=== PATIENT | female | born 1950 | race Caucasian/White ===

== ENCOUNTER 2018-06-29 11:20 | Emergency (ER) | payer MEDICARE ==
[2018-06-29 12:09] VITALS: BP 142/84
--- NOTE | 2018-06-29 12:15 | UC ---
Abdominal Pain Female HPI - HPI Summary HPI Summary: 67 yo female presents with abdominal discomfort. She tells me that around 06/10 she noticed her stools were looser than usual and were more pale/yellow in color. Since that time she has had abdominal discomfort, mostly in the epigastric area and RUQ. She feels nauseous, but knows she must eat - but when she does eat this will trigger diffuse cramps and a loose BM. Over the last 2 weeks she feels her abdomen is larger than usual and her son has told her that her eyes are yellow in color. She has a hx of HTN for which she takes antihypertensives. She has been smoking 1/2 to 2 packs a day for 50 years. Admits to 2-3 glasses of wine daily, but says she has not had a drink since these symptoms began. Denies fever, chills, itching, cough, SOB, chest pain. - History of Current Complaint Chief Complaint: UCAbdominalPain Stated Complaint: ABD PAIN Time Seen by Provider: 06/29/18 12:14 Hx Obtained From: Patient Onset/Duration: Gradual Onset Severity Initially: Mild Severity Currently: Mild Pain Intensity: 1 Pain Scale Used: 0-10 Numeric Allergies/Adverse Reactions: Allergies Allergy/AdvReac Type Severity Reaction Status Date / Time clarithromycin [From Biaxin] Allergy Dizziness Verified 06/29/18 15:55 lisinopril Allergy Swelling Verified 06/29/18 15:55 Of Face,Lips,& Throat Home Medications: Home Medications Aspirin 81 mg CHEW TAB* [Aspirin Low Dose TAB*] 81 mg PO DAILY 06/29/18 [ History Confirmed 06/29/18] Hydrochlorothiazide TAB* [Hydrodiuril TAB*] 25 mg PO DAILY 06/29/18 [History Confirmed 06/29/18] Spironolactone TAB* [Aldactone TAB*] 25 mg PO DAILY 06/29/18 [History Confirmed 06/29/18] amLODIPine TAB* [Norvasc 5 mg TAB*] 5 mg PO DAILY 06/29/18 [History Confirmed ] PMH/Surg Hx/FS Hx/Imm Hx Cardiovascular History: Hypertension - Surgical History Surgical History: Yes Surgery Procedure, Year, and Place: 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 - Family History Known Family History: Positive: None - Social History Occupation: Retired Lives: With Family Alcohol Use: Daily Alcohol Amount: 2-3 glasses before 06/11 Substance Use Type: None Smoking Status (MU): Heavy Every Day Tobacco Smoker Type: Cigarettes Amount Used/How Often: 3/4 PPD Household Exposure Type: Cigarettes Review of Systems Constitutional: Negative Skin: Negative Eyes: Negative ENT: Negative Respiratory: Negative Cardiovascular: Negative Gastrointestinal: Abdominal Pain, Diarrhea Neurovascular: Negative Musculoskeletal: Negative Neurological: Negative Psychological: Negative All Other Systems Reviewed And Are Negative: Yes Physical Exam - Summary Physical Exam Summary: GENERAL: NAD. WDWN. No pain distress. SKIN: No rashes, sores, lesions, or open wounds. HEENT: Head: AT/NC Eyes: EOM intact. PERRLA. Sclera with moderate yellowing. Conjunctiva pale. Throat: Posterior oropharynx without exudates, erythema, or tonsillar enlargement. Uvula midline. NECK: Supple. Nontender. No lymphadenopathy. CHEST: CTAB. No r/r/w. No accessory muscle use. Breathing comfortably and in no distress. CV: RRR. Without m/r/g. Pulses intact. Cap refill <2seconds ABDOMEN: Mild TTP RUQ and epigastric region. Moderate distention. Soft. No CVA tenderness. Bowel sounds present NEURO: Alert. PSYCH: Age appropriate behavior. Triage Information Reviewed: Yes Vital Signs: Initial Vital Signs Temp 97.9 F 06/29/18 12:00 Pulse 90 06/29/18 12:00 Resp 18 06/29/18 12:00 BP 142/84 06/29/18 12:00 Pulse Ox 99 06/29/18 12:00 Vital Signs Reviewed: Yes Abd Pain Female Course/Dx - Course Course Of Treatment: Discussed with the pt that her symptoms are concerning for an issue with her biliary system and this requires a further work-up in the ED. Pt was agreeable to this, but declined ambulance. - Differential Dx/Diagnosis Provider Diagnoses: Jaundice. Abdominal distention. Epigastric abdominal pain Discharge - Sign-Out/Discharge Documenting (check all that apply): Patient Departure All imaging exams completed and their final reports reviewed: No Studies - Discharge Plan Condition: Stable Disposition: HOME-RECOMMEND TO ED Referrals: Rama Willingham MD [Primary Care Provider] - Additional Instructions: Please go to the ER for further evaluation of your yellowing skin, abdominal bloating, and nausea - Billing Disposition and Condition Condition: STABLE Disposition: Home-Recommend to ED
== END 2018-06-29 12:30 | disposition home health service (06) ==
LOC: UCEAST 11:20
DX: R14.0 Abdominal distension (gaseous) (principal); R88.8 Abnormal findings in other body fluids and substances; R10.13 Epigastric pain; I10 Essential (primary) hypertension; F17.210 Nicotine dependence, cigarettes, uncomplicated; Z88.1 Allergy status to other antibiotic agents; R17 Unspecified jaundice
CPT/HCPCS: 99211; G0463

== ENCOUNTER 2018-06-29 13:00 | Emergency (ER) | payer MEDICARE ==
[2018-06-29 16:17] LABS: Hematocrit 41 % (35-47); Hemoglobin 14.7 g/dl (12.0-16.0); Mean Corpuscular HGB Conc 36 g/dl (31-36); Mean Corpuscular Hemoglobin 35 pg (27-31); Mean Corpuscular Volume 97 fL (80-97); Mean Platelet Volume 9.8 um3 (7.4-10.4); Platelet Count 242 10^3/ul (150-450); Red Blood Count 4.25 10^6/ul (4.00-5.40); Red Cell Distribution Width 13 % (10.5-15); White Blood Count 7.1 10^3/ul (3.5-10.8)
[2018-06-29 16:25] LABS: INR 1.07 (0.77-1.02)
--- NOTE | 2018-06-29 16:28 | ED ---
Abdominal Pain/Female - HPI Summary HPI Summary: This patient is a 67 year old F presenting to [facility] with a chief complaint of diffuse abd pain since 3 weeks ago. She states the pain is generally diffuse, with cramps in the lower quadrants, and occasional discrete right sided pain. Pt is unsure about weight loss, but endorses decreased appetite, as well as abd bloating, yellow eyes and skin, diarrhea/soft stool, darker than normal urine, and nausea. She denies CP and SOB. Pt denies PMHx involving her liver, cholecyst , and pancreas, and DM. PMHx HTN HLD. Pt states she quit drinking 3 weeks ago; she used to have 2 or 3 glasses of wine before bed, but stopped because she couldnt stand the smell of it anymore. Pt endorses smoking 2/3 a pack a day. SHx Lymph nodes removed from neck and tongue abscess removal. - History of Current Complaint Chief Complaint: EDGeneral Stated Complaint: ABD BLOATING/NAUSEA Time Seen by Provider: 06/29/18 15:22 Hx Obtained From: Patient Onset/Duration: Gradual Onset, Lasting Weeks, Still Present Timing: Constant Severity Initially: Mild Severity Currently: Mild Pain Scale Used: 0-10 Numeric Location: Diffuse Radiates: No Character: Cramping Aggravating Factor(s): Nothing Alleviating Factor(s): Nothing Associated Signs and Symptoms: Positive: Decreased Appetite, Nausea, Diarrhea, Other: - Jaundiced skin and eyes. Negative: Fever, Chest Pain Allergies/Adverse Reactions: Allergies Allergy/AdvReac Type Severity Reaction Status Date / Time clarithromycin [From Biaxin] Allergy Dizziness Verified 06/30/18 09:35 lisinopril Allergy Swelling Verified 06/30/18 09:35 Of Face,Lips,& Throat PMH/Surg Hx/FS Hx/Imm Hx Endocrine/Hematology History: Denies: Hx Diabetes, Hx Thyroid Disease Cardiovascular History: Reports: Hx Hypercholesterolemia, Hx Hypertension Denies: Hx Congestive Heart Failure Respiratory History: Denies: Hx Asthma, Hx Chronic Obstructive Pulmonary Disease (COPD) GI History: Denies: Hx Ulcer History: Denies: Hx Renal Disease Sensory History: Denies: Hx Legally Blind, Hx Deafness Opthamlomology History: Denies: Hx Legally Blind EENT History: Denies: Hx Deafness Psychiatric History: Denies: Hx Autism, Hx Schizophrenia - Cancer History Cancer Type, 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, hx of skin ca - Surgical History Surgery Procedure, Year, and Place: 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 - Immunization History Immunizations Up to Date: Yes Infectious Disease History: No Infectious Disease History: Denies: Hx Hepatitis, Hx Human Immunodeficiency Virus (HIV), Traveled Outside the [place] in Last 30 Days - Family History Known Family History: Positive: Cardiac Disease, Other - CA, aneurysm - Social History Occupation: Retired Lives: Alone Alcohol Use: Daily Alcohol Amount: 2-3 glasses before 06/11 Substance Use Type: Reports: None Smoking Status (MU): Heavy Every Day Tobacco Smoker Type: Cigarettes Amount Used/How Often: 3/ PPD Review of Systems Negative: Fever Positive: Other - jaundiced Negative: Chest Pain Negative: Shortness Of Breath Positive: Abdominal Pain, Diarrhea, Nausea, Other - abd bloating Positive: other - darker than nl coloration Positive: Other - jaundiced All Other Systems Reviewed And Are Negative: Yes Physical Exam Vital Signs On Initial Exam: Initial Vitals Temp Pulse Resp BP Pulse Ox 97.2 F 95 16 147/90 98 06/29/18 13:09 06/29/18 13:09 06/29/18 13:09 06/29/18 13:09 06/29/18 13:09 Diagnostics - Vital Signs Vital Signs Temp Pulse Resp BP Pulse Ox 06/29/18 13:09 97.2 F 95 16 147/90 98 - Laboratory Lab Results: Lab Results 06/29/18 Range/Units 16:04 WBC 7.1 (3.5-10.8) 10^3/ul RBC 4.25 (4.00-5.40) 10^6/ul Hgb 14.7 (12.0-16.0) g/dl Hct 41 (35-47) % MCV 97 (80-97) fL MCH 35 H (27-31) pg MCHC 36 (31-36) g/dl RDW 13 (10.5-15) % Plt Count 242 (150-450) 10^3/ul MPV 9.8 (7.4-10.4) um3 Neut % (Auto) Pending Lymph % (Auto) Pending [place] % (Auto) Pending Eos % (Auto) Pending Baso % (Auto) Pending Absolute Neuts (auto) Pending Absolute Lymphs (auto) Pending Absolute Monos (auto) Pending Absolute Eos (auto) Pending Absolute Basos (auto) Pending Absolute Nucleated RBC Pending Nucleated RBC % Pending Result Diagrams: 06/29/18 16:04 06/29/18 16:04 Lab Statement: Any lab studies that have been ordered have been reviewed, and results considered in the medical decision making process. - CT A/P CT Interpretation: Positive (See Comments) CT Interpretation Completed By: Radiologist - Intrahepatic duct dilatation, dilated gallbladder and approximately 2.9 x 2.7 cm mass in the inferior pancreatic head suspicious for pancreatic carcinoma. No definite adjacent adenopathy is noted however. Dr. Doran has reviewed this report. - EKG 1531 Cardiac Rate: NL - 96 EKG Rhythm: Sinus Rhythm EKG Interpretation: LAE, Q waves seen in the inferior leads. Re-Evaluation - Re-Evaluation First Eval Re-Evaluation Time: 17:56 Change: Unchanged Comment: Informed pt of imaging and lab results. Pt states she has to go home at the moment, will sign out AMA, but promises to return tonight or tomorrow. Abdominal Pain Fem Course/Dx - Course Course Of Treatment: A 67-year-old F presents to the ED with a CC of diffuse abd pain for 3 weeks. (+) abd bloating, transient right-sided abd pain, cramping lower abd pain, diarrhea, jaundiced skin and eyes, darker than baseline urine color, nausea, and decreased appetite. (-) CP, SOB. Pt claims she quit drinking 3 weeks ago (used to have 2 or 3 glasses of wine a night) because she "couldn't stand the smell of it anymore." PMHx DM, HLD, denies PMHx involving cholecyst, liver, and pancreas, and denies DM. Pt was referred here from her PCP for jaundice and abd distension. An EKG reveals NSR at 96 BPM with LAE and Q waves seen in the inferior leads. A CT A/P w/ reveals intrahepatic duct dilatation, dilated gallbladder and approximately 2.9 x 2.7 cm mass in the inferior pancreatic head suspicious for pancreatic carcinoma. No definite adjacent adenopathy is noted however. An EKG reveals NSR at 96 BPM with . In the ED course, pt was given contrast, KCl, and nl saline. Pt's lab results show a K+ of 2.6, low sodium and low chloride, high total, direct, and indirect bilirubin, high AST, high ALT, high alkaline phosphatase, high CRP, high amylase , and high lipase. Pt is awake, alert, and oriented, capable of making an informed decision, and was thus able to sign-out AMA. - Diagnoses Provider Diagnoses: Obstructive jaundice, Pancreatic mass, Hypokalemia Discharge - Sign-Out/Discharge Documenting (check all that apply): Patient Departure - AMA - Discharge Plan Condition: Stable Disposition: AGAINST MEDICAL ADVICE Patient Education Materials: Hypokalemia (ED), Pancreatic Cancer (DC), Jaundice (ED) Referrals: Rama Willingham MD [Primary Care Provider] - Additional Instructions: Return to the emergency department for any new or worsening symptoms. Please return to the emergency department as soon as possible for a follow up. Follow up with your primary care provider in 1-3 days. - Billing Disposition and Condition Condition: STABLE Disposition: Against Medical Advice - Attestation Statements Document Initiated by Meryl: Yes Documenting Scribe: Lit Foster Provider For Whom Meryl is Documenting (Include Credential): Dr. Esha Doran MD Scribe Attestation: Lit Ayala, scribed for Dr. Esha Doran MD on 07/02/18 at 0746. Scribe Documentation Reviewed: Yes Provider Attestation: The documentation as recorded by the Lit franz accurately reflects the service I personally performed and the decisions made by me, Dr. Esha Doran MD
[2018-06-29 16:30] LABS: Urine Appearance Clear; Urine Blood 1+ (Negative); Urine Color Amber; Urine Ketones Negative (Negative); Urine Protein 1+(30 mg/dL) (Negative); Urine Red Blood Cell 3+(>10/hpf) (Absent); Urine Urobilinogen Positive (Negative); Urine White Blood Cell 1+(6-10/hpf) (Absent)
[2018-06-29 16:40] LABS: EGFR Non-African American 75.5 (>60)
[2018-06-29 16:49] LABS: ABS Basophils 0.1 10^3/ul (0-0.2); ABS Eosinophils 0.1 10^3/ul (0-0.6); ABS Lymphocytes 1.6 10^3/ul (1.0-4.8); ABS Monocytes 0.4 10^3/ul (0-0.8); ABS Neutrophils 4.9 10^3/ul (1.5-7.7); ABS Nucleated RBC 0 10^3/ul; Eosinophil % 0.7 % (0-6); Lymphocyte % 22.6 % (25-47); Nucleated Red Blood Cells % 0
[2018-06-29] MEDS ORDERED: NS 0.9% 1000 ML* 1,000 ML IV ONE (17:04)
[2018-06-29] MEDS ORDERED: KCL 20 MEQ/100 ML IVPREMIX* 20 MEQ/100 ML BAG IV ONE (17:04)
[2018-06-29] MEDS ORDERED: Potassium Chlor TAB* 20 MEQ TAB.ER PO ONE (17:04)
[2018-06-29] MEDS ORDERED: Iohexol 300* (CONTRAST) 10 ML SDV IV ONE (17:07)
--- NOTE | 2018-06-29 17:46 | RAD ---
Indication: Abdominal pain and bloating. Contrast: Administered 85.1 ml of OMNIPAQUE 300 mg/ml CT of the abdomen and pelvis was performed after IV contrast administration. No oral contrast was given. Coronal and sagittal reconstructed images were obtained. The lung bases demonstrate no pleural fluid, nodules or masses. Heart is of normal size without evidence of pericardial effusion. The liver is normal in size. There is mild to moderate intrahepatic duct dilatation noted. The common duct is dilated. The gallbladder is also dilated. Pancreatic duct is also dilated. There is a mass in the pancreatic head which is nonenhancing measuring 2.9 x 2.7 cm. This is suspicious for pancreatic carcinoma. The spleen is normal in size. There is a right adrenal nodule measuring 10 mm. The left adrenal gland is unremarkable are noted. The kidneys demonstrate symmetric nephrograms. There is an atherosclerotic aorta is noted. Celiac axis and superior mesenteric artery demonstrates atherosclerosis. No retroperitoneal adenopathy is noted. Small bowel and colon demonstrates no abnormal dilatation. The urinary bladder is unremarkable. The uterus and ovaries demonstrates myomatous changes. No hernias are noted. The bony structures demonstrates multilevel degenerative disc disease. IMPRESSION: Intrahepatic duct dilatation, dilated gallbladder and approximately 2.9 x 2.7 cm mass in the inferior pancreatic head suspicious for pancreatic carcinoma. No definite adjacent adenopathy is noted however. Dr. Doran was notified of the results at 1742 hours.
[2018-06-29 20:19] VITALS: BP 174/84
== END 2018-06-29 20:20 | disposition left against medical advice (07) ==
LOC: ED 13:00
DX: K83.1 Obstruction of bile duct (principal); K86.9 Disease of pancreas, unspecified; E87.6 Hypokalemia
CPT/HCPCS: 36415; 74177; 80053; 81003; 81015; 82140; 82150; 82247; 82248; 83605; 83690; 83735; 83880; 84484; 85025; 85610; 85730; 86140; 87040; 87086; 93005; 96365; 99283; A9270-GY; J3480; Q9967

== ENCOUNTER 2018-06-30 09:29 | Inpatient (IN) | payer MEDICARE ==
--- NOTE | 2018-06-30 10:36 | ED ---
Abdominal Pain/Female - HPI Summary HPI Summary: This patient is a 67 year old F presenting to [facility] accompanied by her son with a chief complaint of 2/10 diffuse lower abd pain since 3 weeks ago. She endorses yellow stool and dark urine. Pt was in the ED yesterday, and a CT found a mass on her pancreas. Pt also had a low K+ level yesterday. Pt left AMA last night, but promised she would return today. - History of Current Complaint Chief Complaint: EDAbdPain Stated Complaint: ABD PAIN/PANCREATIC MASS Time Seen by Provider: 06/30/18 10:05 Hx Obtained From: Patient Onset/Duration: Gradual Onset, Lasting Weeks, Still Present Timing: Constant Severity Initially: Mild Severity Currently: Mild Pain Intensity: 1 Pain Scale Used: 0-10 Numeric Location: Diffuse Radiates: No Aggravating Factor(s): Nothing Alleviating Factor(s): Nothing Associated Signs and Symptoms: Positive: Urinary Symptoms - dark color, Diarrhea - yellow and soft. Negative: Fever Allergies/Adverse Reactions: Allergies Allergy/AdvReac Type Severity Reaction Status Date / Time clarithromycin [From Biaxin] Allergy Dizziness Verified 06/30/18 09:35 lisinopril Allergy Swelling Verified 06/30/18 09:35 Of Face,Lips,& Throat PMH/Surg Hx/FS Hx/Imm Hx Endocrine/Hematology History: Denies: Hx Diabetes, Hx Thyroid Disease Cardiovascular History: Reports: Hx Hypercholesterolemia, Hx Hypertension Denies: Hx Congestive Heart Failure Respiratory History: Denies: Hx Asthma, Hx Chronic Obstructive Pulmonary Disease (COPD) GI History: Denies: Hx Ulcer History: Denies: Hx Renal Disease Sensory History: Denies: Hx Legally Blind, Hx Deafness Opthamlomology History: Denies: Hx Legally Blind EENT History: Denies: Hx Deafness Psychiatric History: Denies: Hx Autism, Hx Schizophrenia - Cancer History Cancer Type, 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, hx of skin ca - Surgical History Surgery Procedure, Year, and Place: surgery tongue and lymph node removal - cancer 2010 Infectious Disease History: No Infectious Disease History: Denies: Hx Hepatitis, Hx Human Immunodeficiency Virus (HIV), Traveled Outside the [place] in Last 30 Days - Family History Known Family History: Positive: Cardiac Disease, Other - CA, aneurysm - Social History Occupation: Retired Lives: Alone Alcohol Use: Daily Alcohol Amount: 2-3 glasses before 06/11 Substance Use Type: Reports: None Smoking Status (MU): Heavy Every Day Tobacco Smoker Type: Cigarettes Amount Used/How Often: 3/4 PPD Review of Systems Negative: Fever Positive: Abdominal Pain, Diarrhea - yellow and soft Positive: other - dark coloration All Other Systems Reviewed And Are Negative: Yes Physical Exam - Summary Physical Exam Summary: VITAL SIGNS: Reviewed. GENERAL: Patient is a well-developed and nourished female who is lying comfortable in the stretcher. Patient is not in any acute respiratory distress. HEAD AND FACE: No signs of trauma. No ecchymosis, hematomas or skull depressions. No sinus tenderness. EYES: PERRLA, EOMI x 2, No injected conjunctiva, no nystagmus. Jaundiced EARS: Hearing grossly intact. Ear canals and tympanic membranes are within normal limits. MOUTH: Oropharynx within normal limits. NECK: Supple, trachea is midline, no adenopathy, no JVD, no carotid bruit, no c- spine tenderness, neck with full ROM. CHEST: Symmetric, no tenderness at palpation LUNGS: Clear to auscultation bilaterally. No wheezing or crackles. CVS: Regular rate and rhythm, S1 and S2 present, no murmurs or gallops appreciated. ABDOMEN: Soft, non-tender. No signs of distention. No rebound no guarding, and no masses palpated. Bowel sounds are normal. EXTREMITIES: FROM in all major joints, no edema, no cyanosis or clubbing. NEURO: Alert and oriented x 3. No acute neurological deficits. Speech is normal and follows commands. SKIN: Dry and warm, jaundiced Triage Information Reviewed: Yes Vital Signs On Initial Exam: Initial Vitals Temp Pulse Resp BP Pulse Ox 98.1 F 101 16 146/82 99 06/30/18 09:31 18 09:31 18 09:31 18 09:31 18 09:31 Vital Signs Reviewed: Yes Diagnostics - Vital Signs Vital Signs Temp Pulse Resp BP Pulse Ox 06/30/18 09:31 98.1 F 101 16 146/82 99 - Laboratory Result Diagrams: 07/01/18 05:36 07/01/18 05:36 Lab Statement: Any lab studies that have been ordered have been reviewed, and results considered in the medical decision making process. - EKG 1035 Cardiac Rate: NL - 82 EKG Rhythm: Sinus Rhythm ST Segment: Normal Ectopy: None EKG Interpretation: Q waves in III and AVF, no STEMI Abdominal Pain Fem Course/Dx - Course Course Of Treatment: This patient is a 67-year-old female who presents to the emergency department with chief complaint of having lower abdominal pain. The patient was seen in the emergency department yesterday and she was found to be jaundiced with the defect and bilirubin of 6.7 indirect is 4.1, AST 190, AST 348 , amylase 272 and lipase 1350. Abdominopelvic CT done yesterday show appetite mass. The patient signed AGAINST MEDICAL ADVICE and she will home because she needs to take care of some personal business. Today she comes back to be admitted and to have a full workup. She has no significant complaints except that she has lower abdominal tenderness only 1-2 out of 10 without radiation. Work without any significant abnormalities except for an lipase is 719, potassium is 3.1. This point I discussed my physical exam, findings and test results with Dr. Plaza from the hospital services were accepted the patient for admission. - Diagnoses Differential Diagnosis: Positive: Constipation, Gall Bladder Disease, Renal Colic, Urinary Tract Infection Provider Diagnoses: Jaundice, Pancreatitis, Pancreatic mass - Provider Notifications Discussed Care Of Patient With: Ari Plaza Time Discussed With Above Provider: 11:10 Instructed by Provider To: Other - accepts admission Discharge - Sign-Out/Discharge Documenting (check all that apply): Patient Departure - admit - Discharge Plan Condition: Fair Disposition: ADMITTED TO [facility] - Billing Disposition and Condition Condition: FAIR Disposition: Admitted to [facility] - Attestation Statements Document Initiated by Meryl: Yes Documenting Scribe: Lit Foster Provider For Whom Meryl is Documenting (Include Credential): Dr. Deshawn Ortiz MD Scribe Attestation: Lit Ayala scribed for Dr. Deshawn Ortiz MD on 07/01/18 at 1515. Scribe Documentation Reviewed: Yes Provider Attestation: The documentation as recorded by the Lit franz accurately reflects the service I personally performed and the decisions made by me, Dr. Deshawn Ortiz MD
[2018-06-30] MEDS ORDERED: Potassium Chlor TAB* 20 MEQ TAB.ER PO ONE (14:31)
[2018-06-30] MEDS ORDERED: HYDROmorphone INJ1* 1 MG/ML SYRINGE IV PRN (14:31)
[2018-06-30 15:08] LABS: ABS Basophils 0.1 10^3/ul (0-0.2); ABS Eosinophils 0 10^3/ul (0-0.6); ABS Monocytes 0.3 10^3/ul (0-0.8); ABS Neutrophils 4.4 10^3/ul (1.5-7.7); ABS Nucleated RBC 0 10^3/ul; EGFR Non-African American 75.5 (>60); Eosinophil % 0.7 % (0-6); Hematocrit 40 % (35-47); Hemoglobin 14.1 g/dl (12.0-16.0); Lymphocyte % 17.1 % (25-47); Mean Corpuscular HGB Conc 35 g/dl (31-36); Mean Corpuscular Hemoglobin 34 pg (27-31); Mean Corpuscular Volume 97 fL (80-97); Mean Platelet Volume 9.8 um3 (7.4-10.4); Nucleated Red Blood Cells % 0.2; Platelet Count 227 10^3/ul (150-450); Red Blood Count 4.15 10^6/ul (4.00-5.40); Red Cell Distribution Width 13 % (10.5-15); White Blood Count 5.9 10^3/ul (3.5-10.8)
[2018-06-30 16:34] LABS: Urine Appearance Clear; Urine Blood 1+ (Negative); Urine Color Amber; Urine Ketones Trace (Negative); Urine Protein Negative (Negative); Urine Red Blood Cell Trace(0-2/hpf) (Absent); Urine Specific Gravity 1.017 (1.010-1.030); Urine Urobilinogen Negative (Negative); Urine White Blood Cell Trace(0-5/hpf) (Absent)
[2018-06-30] MEDS: NS 0.9% 1000 ML* 1,000 ML IV SCH (17:47)
--- NOTE | 2018-06-30 21:49 | HP ---
ADMISSION HISTORY AND PHYSICAL: DATE OF ADMISSION: 06/30/18 CHIEF COMPLAINT: Abdominal pain. HISTORY OF PRESENT ILLNESS/HOSPITAL COURSE: The patient is a 67-year-old lady with history of hypercholesterolemia and hypertension, who was in her usual state of health until 1 week prior to admission where she mentioned that her son noticed that her eyes appeared to be yellowish in color. This was also preceded with some intermittent abdominal pain, sometimes shooting, sometimes cramping in quality back on 06/12/18. She then presented yesterday in the emergency room where a CAT scan was ordered, which revealed intrahepatic duct dilatation with dilated gallbladder and proximally 2.9 x 2.7 cm mass in the inferior pancreatic head suspicious for pancreatic carcinoma with no definite adjacent adenopathy that was noted. In addition, she was also found to have mild pancreatitis with lipase in the 600 yesterday. She was then subsequently offered admission. Unfortunately, she declined to be admitted the day before since she mentioned that she had something to do at home. Persistence of her signs and symptoms led to her representation back to the ED today, still complaining of abdominal pain as well as jaundice. PAST MEDICAL AND SURGICAL HISTORY: Hypertension and hypercholesterolemia as well as history of tongue cancer, status post partial tongue and lymph node resection. History of alcohol abuse, mentioned that she has not had any alcohol intake since 1 month prior to this admission. ALLERGIES: NKDA. FAMILY HISTORY: Her father and brother have had history of heart disease. Her mother has had history of aneurysm. SOCIAL HISTORY: She currently smokes about 3 quarters of a pack per day that she has recently tried to decrease her smoking habit about a week or two ago, but mentions that she has had at least a [id number] history, usually smoking about 1 per day on average for the last 30 years. Alcohol abuse as described above. She lives alone. She is and has a 44-year-old child. REVIEW OF SYSTEMS: She mentions that she has not eaten a good meal in 4 days since Wednesday and mentions that when she has to go to the bathroom, her stools appeared yellowish and somewhat greasy. Complains of abdominal pain as described above. Denied any recent history of fevers, chills, nausea, vomiting, chest pain, shortness of breath, increased cough or sputum production, constipation, myalgias, arthralgias, throat pain, or new skin lesions other than her jaundice that has been noticed by her son about a week prior. PHYSICAL EXAMINATION GENERAL APPEARANCE: The patient is awake, alert, and oriented, not in acute distress. VITAL SIGNS: Blood pressure in 150s to 160 systolic. HEENT: Normocephalic, atraumatic. PERRLA. Extraocular muscles intact. Positive for icterus. Moist oral mucosa. Negative throat erythema. NECK: Soft, supple with no cervical lymphadenopathy. No JVD. CHEST: Clear to auscultation bilaterally. Good air entry. No wheezes, rales, or rhonchi. HEART: S1, S2 within normal limits. Regular rate and rhythm. No murmurs, rubs , or gallops. ABDOMEN: Soft. Slightly tender on the right upper quadrant to the epigastric area on deep palpation. Otherwise, nonsurgical abdomen. EXTREMITIES: No cyanosis, clubbing, or edema. SKIN: Warm to touch with positive for jaundice. DIAGNOSTIC STUDIES/LAB DATA: Most recent pertinent laboratories drawn today show sodium of 134 and chloride of 100, BUN and creatinine of 12 and 0.76. Total bili of 11.6, ALT of 296, AST of 151. Lipase of 719. EKG shows sinus rhythm, 82 beats per minute with no ST-segment changes. ASSESSMENT AND PLAN: The patient is a 67-year-old lady with history of hypertension, hypercholesterolemia, being admitted for abdominal pain and jaundice suspicious for pancreatic carcinoma. 1. Pancreatic mass suspicious for pancreatic carcinoma. We will check CA 19-9 and AFP. I have already spoken with Dr. Swann, who suggested that the patient can be best served by transferring the patient to tertiary facility where an ERCP and/or an EUS for subsequent staging could be done; however, unfortunately our system is currently down and we have just recently obtained her abdominal CT scan result to review and we will admit her at this time to treat her mild pancreatitis and either discharge her and/or for possible transfer to [facility] for expedited staging for likelihood pancreatic carcinoma. We will check CA 19-9 and AFP as discussed. 2. Mild pancreatitis. We will give the patient normal saline at 100 cc per hour and we will place the patient on p.r.n. Dilaudid with appropriate holding orders as described above. 3. Hypertension. We will hold off on HCTZ given mild pancreatitis. We will place the patient on clear liquid diet for now. 4. Hypokalemia. Corrected as ordered but we will continue to monitor. 5. DVT prophylaxis. We will place the patient on Lovenox subcu given the patient is high risk for deep vein thrombosis given likely pancreatic carcinoma. 6. Disposition. As above. [id number]/[facility] #: [id number]
[2018-07-01] MEDS: NS 0.9% 1000 ML* 1,000 ML IV SCH (02:49)
[2018-07-01 06:14] LABS: ABS Basophils 0.1 10^3/ul (0-0.2); ABS Eosinophils 0.1 10^3/ul (0-0.6); ABS Lymphocytes 1.1 10^3/ul (1.0-4.8); ABS Monocytes 0.3 10^3/ul (0-0.8); ABS Neutrophils 3.9 10^3/ul (1.5-7.7); ABS Nucleated RBC 0 10^3/ul; Eosinophil % 1.1 % (0-6); Hematocrit 38 % (35-47); Hemoglobin 13.2 g/dl (12.0-16.0); Lymphocyte % 19.9 % (25-47); Mean Corpuscular HGB Conc 35 g/dl (31-36); Mean Corpuscular Hemoglobin 34 pg (27-31); Mean Corpuscular Volume 98 fL (80-97); Mean Platelet Volume 10.4 um3 (7.4-10.4); Nucleated Red Blood Cells % 0; Platelet Count 200 10^3/ul (150-450); Red Blood Count 3.87 10^6/ul (4.00-5.40); Red Cell Distribution Width 14 % (10.5-15); White Blood Count 5.5 10^3/ul (3.5-10.8)
[2018-07-01 06:36] LABS: EGFR Non-African American 101.1 (>60)
[2018-07-01] MEDS ORDERED: Magnesium Sulfate IV* 3 GM in NS 0.9% 100 ML* 100 ML IVPB ONE (08:15)
[2018-07-01] MEDS ORDERED: Enoxaparin(*) 30 MG/0.3 ML SYR SUBCUT SCH (09:00)
[2018-07-01] MEDS ORDERED: amLODIPine TAB* 5 MG PO SCH (09:00)
[2018-07-01 10:44] LABS: INR 1.1 (0.77-1.02)
[2018-07-01 11:32] VITALS: BP 142/66
--- NOTE | 2018-07-01 15:02 | TRS ---
CC: Julien Frost; Julien Cox; Dr. Ortiz; Dr. Willingham DATE OF ADMISSION: 06/30/2018. DATE OF TRANSFER: 07/01/2018. DISCHARGE DIAGNOSES: 1. Pancreatic mass suspicious for pancreatic carcinoma, CA19-9, AFP tumor markers drawn, but pending. 2. Mild pancreatitis. 3. Biliary congestion with severe jaundice and icterus. 4. History of hypertension. HISTORY OF PRESENT ILLNESS/HOSPITAL COURSE: The patient is a 67-year-old, lady with a history of hypercholesterolemia and hypertension with a previous history of tongue cancer, status post partial tongue and lymph node resection, as well as significant history of smoking with an at least 30 pack year history of cigarette smoking history who was in her usual state of health until one week prior to admission where she mentioned that her son noticed that her eyes appeared to yellowish in color. This was also preceded with some intermittent abdominal pain, sometimes shooting, sometimes cramping in quality back on the 12 of June. She then presented two days ago in our emergency room a [facility] where an abdominal CT scan was ordered which revealed intrahepatic duct dilatation with dilated gallbladder and proximally 2.9 x 2.7 cm mass in the inferior pancreatic head suspicious for pancreatic carcinoma with no definite adjacent adenopathy that was noted. She was also found to have mild pancreatitis with a lipase of 600 on her initial presentation. However, despite being offered admission, she declined this given that she mentions that she has some personal affairs to take care of, but promised to come back the following day which she actually did, leading to her admission for observation. Upon consultation with GI, Dr. Gross mentioned that we do not have advanced endoscopic capability and that the patient would need EUS with possible needle biopsy, as well as an ERCP with possible stent placement and brushings, both for diagnostic and relief of her biliary congestion purposes. Furthermore, given the high mortality rate of pancreatic carcinoma, her diagnosis would need to be established and subsequently staged in an expedited manner. I have spoken in person with Dr. Coto who has accepted the patient's transfer and Dr. Lugo. Their olive knocker will then see and evaluate the patient in consultation. REVIEW OF SYSTEMS: The patient denied any recent headaches, dizziness, fevers, chills, nausea, vomiting, chest pain, shortness of breath, increased cough nor sputum production, abdominal pain, diarrhea, constipation, pain and/or increased frequency on urination, myalgias, arthralgias, throat pain, or new skin lesions. The rest of the 14 point review of systems are otherwise unremarkable. PHYSICAL EXAMINATION: General: The patient is awake, alert, and oriented times three. Not in acute distress. Most recent vital signs of record: Blood pressure 142/66, 98.4 degrees Fahrenheit, 69 beats per minute heart rate, 14 per minute respiratory rate, saturating at 97 percent room air. HEENT: Normocephalic, atraumatic. PERRLA, positive for icterus. Neck: Soft and supple with no cervical lymphadenopathy. No JVD. Heart: S1, S2 within normal limits. Regular rate and rhythm. No murmurs, rubs or gallops. Chest: Clear to auscultation bilaterally. Good air entry. No wheezes, rales, or rhonchi. Abdomen: Soft, nondistended, slightly tender epigastric area on moderate deep palpation. Otherwise, nonsurgical abdomen with no guarding appreciated. Normoactive bowel sounds times four. Extremities: No cyanosis, clubbing, or edema. Skin: Positive for jaundice. Psychiatric: The patient denies any depression, nor suicidal nor homicidal ideation. Total time spent evaluating the patient, reviewing the pertinent data and appropriate documentation is greater than 40 minutes. [id number] #: [id number] [facility]
== END 2018-07-01 16:00 | disposition short-term general hospital (02) | DRG 435 ==
LOC: ED 09:29 → MED 17:04
PROVIDERS: ADMIT Student in an Organized Health Care Education/Training Program; ATTEND Student in an Organized Health Care Education/Training Program
DX: C25.9 Malignant neoplasm of pancreas, unspecified (principal); K85.90 Acute pancreatitis without necrosis or infection, unspecified; R17 Unspecified jaundice; I10 Essential (primary) hypertension; F17.210 Nicotine dependence, cigarettes, uncomplicated; F10.10 Alcohol abuse, uncomplicated; Y90.9 Presence of alcohol in blood, level not specified; E87.6 Hypokalemia; E78.00 Pure hypercholesterolemia, unspecified; Z85.810 Personal history of malignant neoplasm of tongue; Z82.49 Family history of ischemic heart disease and other diseases of the circulatory system; Z88.1 Allergy status to other antibiotic agents; Z88.8 Allergy status to other drugs, medicaments and biological substances; Z85.828 Personal history of other malignant neoplasm of skin; Z80.9 Family history of malignant neoplasm, unspecified; Z84.89 Family history of other specified conditions
CPT/HCPCS: 36415; 74177; 80053; 80061; 81003; 81015; 82105; 82140; 82150; 82247; 82248; 83605; 83690; 83735; 83880; 84100; 84484; 85025; 85610; 85730; 86140; 86301; 87040; 87086; 93005; 96365; 99211; 99283; 99284; A9270-GY; G0463; J1650; J3475; J3480; Q9967